=== PATIENT | male | born 1975 | race Caucasian/White ===

== ENCOUNTER → 2020-05-31 | Outpatient (CLI) | payer MEDICAID ==
[2020-05-31 15:14] LABS: ALANINE AMINOTRANSFERASE 35 U/L (12-78); ALBUMIN 3.7 g/dL (3.4-5.0); ANION GAP 5 mmol/L (5-15); CALCIUM 9.7 mg/dL (8.5-10.1); CHLORIDE 110 mmol/L (98-107)
[2020-05-31 15:16] LABS: BASOPHILS % (AUTO) 1 % (0-1); EOSINOPHILS % (AUTO) 1 % (1-7); LYMPHOCYTES % (AUTO) 27 % (22-44); MEAN CORPUSCULAR HEMOGLOBIN 29.1 pg (27.5-34.5); MEAN CORPUSCULAR HGB CONC 33.5 g/dL (33.2-36.2); MONOCYTES % (AUTO) 8 % (2-9); NEUTROPHILS % (AUTO) 64 % (42-75); PLATELET COUNT 226 x10^3/uL (130-400); RED BLOOD COUNT 5.39 x10^6/uL (4.38-5.82); RED CELL DISTRIBUTION WIDTH 13.9 % (9.4-14.8)
[2020-05-31 15:17] LABS: ALKALINE PHOSPHATASE 62 U/L (45-117); BILIRUBIN,TOTAL 0.8 mg/dL (0.2-1.0); CREATININE 1.25 mg/dL (0.7-1.3); TOTAL PROTEIN 7.4 g/dL (6.4-8.2)
[2020-05-31 15:25] LABS: MD NO
== END | disposition home or self-care (01) ==
LOC: STAR 14:01
PROVIDERS: ATTEND Otolaryngology
DX: Z01.818 Encounter for other preprocedural examination (principal); Z20.828 Contact with and (suspected) exposure to other viral communicable diseases
CPT/HCPCS: 36415; 80053; 85025; 87635; 93005

== ENCOUNTER 2020-06-05 07:26 | Inpatient (IN) | payer MEDICAID ==
[~2020-06-05] VITALS: Ht 188 cm; Wt 98.9 kg
[2020-06-05] MEDS ORDERED: CHLORHEXIDINE 15 ML UDC MM STA (11:25)
[2020-06-05] MEDS ORDERED: LACTATED RINGERS 1,000 ML IV SCH (11:30)
[2020-06-05] MEDS ORDERED: MIDAZOLAM 1 MG/ML, 2ML ONE (11:33)
[2020-06-05] MEDS ORDERED: FENTANYL PF 250 MCG/5ML ONE (11:34)
[2020-06-05] MEDS ORDERED: ROCURONIUM 10MG/ML,5ML ONE (11:37)
[2020-06-05] MEDS ORDERED: CEFAZOLIN 1,000 MG ONE ×2 (11:37)
[2020-06-05] MEDS ORDERED: PROPOFOL 10 MG/ML, 20ML ONE (11:37)
[2020-06-05] MEDS ORDERED: LIDOCAINE-MPF 2% ,5ML ONE (11:37)
[2020-06-05] MEDS ORDERED: DEXAMETHASONE 4 MG/ML, 1ML ONE ×2 (11:38)
[2020-06-05] MEDS ORDERED: ONDANSETRON 2MG/ML, 2ML ONE (11:38)
[2020-06-05] MEDS ORDERED: LABETALOL 5MG/ML, 20ML IV PRN (12:00)
[2020-06-05] MEDS ORDERED: HYDROmorphone 1 MG/ML, 1ML INJ IVPush PRN (12:00)
[2020-06-05] MEDS ORDERED: OXYcodone 5 MG/5 ML ORAL.SOL UDC PO PRN (12:00)
[2020-06-05] MEDS ORDERED: ACETAMINOPHEN 325 MG TABLET PO PRN ×2 (12:00→19:30)
[2020-06-05] MEDS ORDERED: FENTANYL PF 100 MCG/2ML IV PRN (12:00)
[2020-06-05] MEDS ORDERED: hydrALAzine 20 MG/ML, 1ML IV PRN (12:00)
[2020-06-05] MEDS ORDERED: MEPERIDINE/PF 25MG/0.5ML IVPush PRN (12:00)
[2020-06-05] MEDS ORDERED: DIPHENHYDRAMINE 50 MG/ML, 1ML IVPush PRN (12:00)
[2020-06-05] MEDS ORDERED: DIAZEPAM 5 MG/ML, 2ML IVPush PRN (12:00)
[2020-06-05] MEDS ORDERED: ONDANSETRON 2MG/ML, 2ML IVPush PRN (12:00)
[2020-06-05] MEDS ORDERED: PROMETHAZINE 25 MG/ML, 1ML IVPush PRN (12:00)
[2020-06-05] MEDS ORDERED: LIDOCAINE/PF 1%, 30ML ONE (12:38)
[2020-06-05] MEDS ORDERED: EPINEPHRINE 1 MG/ML, 1ML ONE (12:38)
[2020-06-05] MEDS ORDERED: BACITRACIN 50,000 UNIT ONE (12:38)
[2020-06-05] MEDS ORDERED: BACITRACIN OINT 500U/GM, 15 GM ONE (12:50)
[2020-06-05] MEDS ORDERED: KETOROLAC 30 MG/1 ML ONE (13:23)
[2020-06-05] MEDS ORDERED: MEPERIDINE/PF 25MG/ML,1ML ONE (17:17)
[2020-06-05] MEDS ORDERED: OXYcodone 5 MG/5 ML ORAL.SOL UDC ONE (17:17)
[2020-06-05] MEDS ORDERED: ACETAMINOPHEN 650 MG/20.3 ML UDC ONE (17:17)
[2020-06-05] MEDS ORDERED: FENTANYL PF 100 MCG/2ML ONE (17:30)
[2020-06-05] MEDS ORDERED: ONDANSETRON 4 MG TABLET PO PRN (19:30)
[2020-06-05] MEDS ORDERED: DIPHENHYDRAMINE 50 MG CAPSULE PO PRN (19:30)
[2020-06-05] MEDS ORDERED: MORPHINE SULFATE 4 MG/ML, 1ML IV PRN (19:30)
[2020-06-05] MEDS: D5%-0.45NACL+KCL 20MEQ 1,000 ML IV SCH (19:30)
[2020-06-05 19:43] VITALS: BP 103/79
[2020-06-06 00:39] VITALS: BP 125/60
[2020-06-06] MEDS: DIPHENHYDRAMINE 50 MG CAPSULE PO PRN ×4 (02:34→21:33)
[2020-06-06] MEDS: D5%-0.45NACL+KCL 20MEQ 1,000 ML IV SCH ×3 (03:50→20:30)
[2020-06-06 04:49] VITALS: BP 111/63
[2020-06-06 06:29] VITALS: BP 128/77
[2020-06-06 13:21] VITALS: BP 121/74
[2020-06-06] MEDS: MUPIROCIN OINT 2%, 22GM TP SCH (21:33)
[2020-06-06 22:07] VITALS: BP 121/80
[2020-06-07 02:33] VITALS: BP 125/76
[2020-06-07] MEDS: D5%-0.45NACL+KCL 20MEQ 1,000 ML IV SCH ×2 (04:50→13:06)
[2020-06-07] MEDS: DIPHENHYDRAMINE 50 MG CAPSULE PO PRN ×2 (05:17→13:10)
[2020-06-07 06:51] VITALS: BP 133/85
[2020-06-07] MEDS ORDERED: HYDR-3653 PO (09:16)
[2020-06-07] MEDS: MUPIROCIN OINT 2%, 22GM TP SCH (09:34)
[2020-06-07 14:36] VITALS: BP 144/82
== END 2020-06-07 17:15 | disposition home or self-care (01) | DRG 580 ==
LOC: ORIP 10:59 → EDSTATUS 13:00 → 4NE 18:21
PROVIDERS: ADMIT Otolaryngology; ATTEND Otolaryngology
PROC: 0HB0XZZ Excision of Scalp Skin, External Approach (ICD-10-PCS; principal; 2020-06-05 13:00)
PROC: 07T10ZZ Resection of Right Neck Lymphatic, Open Approach (ICD-10-PCS; 2020-06-05 13:00)
DX: C43.4 Malignant melanoma of scalp and neck (principal); C79.89 Secondary malignant neoplasm of other specified sites
CPT/HCPCS: J3490 ×2; 88305; 88307; 88341; 88342; C1729; G0378; J0171; J0690; J1100; J1885; J2175; J2250; J2405; J2704; J3010; J2270; J7120